=== PATIENT | female | born 1980 | race Caucasian/White ===

== ENCOUNTER 2017-09-04 10:11 | Emergency (ER) | payer OTHER ==
[~2017-09-04] VITALS: Ht 147.3 cm; Wt 54.4 kg
[~2017-09-04 10:11] MED LIST: ALBU.083IS IH; ALBU90OI6 INH; CITA20 PO; CYCL10 PO; HYDACE5325 PO; IBUP600 PO; PRED20 PO
[2017-09-04] MEDS ORDERED: BUDE10.22 INH (10:59)
[2017-09-04] MEDS ORDERED: CYAN500 PO (10:59)
[2017-09-04] MEDS ORDERED: VITAMIN D50000 UNIT PO (10:59)
[2017-09-04] MEDS ORDERED: MONT10T PO (11:00)
== END 2017-09-04 12:25 | disposition home or self-care (01) ==
LOC: ER 10:11
DX: M25.532 Pain in left wrist (principal); M79.672 Pain in left foot; J45.909 Unspecified asthma, uncomplicated; F17.200 Nicotine dependence, unspecified, uncomplicated; Z88.1 Allergy status to other antibiotic agents; Z88.2 Allergy status to sulfonamides; Z88.6 Allergy status to analgesic agent; Z88.5 Allergy status to narcotic agent; Z88.8 Allergy status to other drugs, medicaments and biological substances; Z79.899 Other long term (current) drug therapy; X50.1XXA Overexertion from prolonged static or awkward postures, initial encounter
CPT/HCPCS: 29125; 73110; 73630; 99283

== ENCOUNTER 2021-04-05 16:17 | Emergency (ER) | payer OTHER ==
[~2021-04-05] VITALS: Ht 147.3 cm; Wt 52.2 kg
[~2021-04-05 16:17] MED LIST changes: +BUDE10.22 INH; +CYAN500 PO; +MONT10T PO; +VITAMIN D50000 UNIT PO
== END 2021-04-05 18:22 | disposition home or self-care (01) ==
LOC: ER 16:17
DX: M54.5 Low back pain (principal); G89.29 Other chronic pain; J45.909 Unspecified asthma, uncomplicated; F17.200 Nicotine dependence, unspecified, uncomplicated; Z88.2 Allergy status to sulfonamides; Z88.6 Allergy status to analgesic agent; Z88.5 Allergy status to narcotic agent; Z88.8 Allergy status to other drugs, medicaments and biological substances; Z88.1 Allergy status to other antibiotic agents; Z79.899 Other long term (current) drug therapy
CPT/HCPCS: 72100; 96372; 99284-25; A9270; J1885

== ENCOUNTER 2024-05-21 22:49 | Emergency (ER) | payer OTHER ==
[~2024-05-21] VITALS: Ht 144.8 cm; Wt 54.4 kg
[2024-05-21] MEDS ORDERED: NS 1,000 ML IV SCH (23:00)
[2024-05-21] MEDS ORDERED: Famotidine 10 MG/ML 2ML Vial IV ONE (23:00)
[2024-05-22] MEDS ORDERED: PRED20 PO (01:14)
[2024-05-22] MEDS ORDERED: BENADRYL25 M1 PO (01:14)
[2024-05-22] MEDS ORDERED: FAMO20 PO (01:14)
[2024-05-22] MEDS ORDERED: EPIPEN0.3 MG/0.1 IM (01:14)
[2024-05-22 03:04] VITALS: BP 101/78
== END 2024-05-22 01:41 | disposition home or self-care (01) ==
LOC: ER 22:49
DX: T78.2XXA Anaphylactic shock, unspecified, initial encounter (principal); J45.909 Unspecified asthma, uncomplicated; F17.200 Nicotine dependence, unspecified, uncomplicated; Z88.2 Allergy status to sulfonamides; Z88.8 Allergy status to other drugs, medicaments and biological substances; Z88.5 Allergy status to narcotic agent; Z79.899 Other long term (current) drug therapy; Z79.52 Long term (current) use of systemic steroids
CPT/HCPCS: 93005; 93010; 96374; 99285-25; J7030